=== PATIENT | male | born 1935 | race Two or more races ===

== ENCOUNTER 2021-03-13 13:35 | Outpatient (CLI) | payer MEDICARE | END 2021-03-13 23:59 | disposition home or self-care (01) | LOC: MSC 13:35 | PROVIDERS: ATTEND Internal Medicine | DX: R79.89 Other specified abnormal findings of blood chemistry (principal); I10 Essential (primary) hypertension; E11.9 Type 2 diabetes mellitus without complications; N40.0 Benign prostatic hyperplasia without lower urinary tract symptoms; E78.5 Hyperlipidemia, unspecified ==